=== PATIENT | male | born 1940 | race Caucasian/White ===

== ENCOUNTER 2016-08-27 14:57 | Emergency (ER) | payer OTHER ==
[~2016-08-27] VITALS: Ht 162.6 cm; Wt 56.7 kg
[~2016-08-27 14:57] MED LIST: AMOXICILLIN500 MG PO; POLYTRIM O200 GTT/BO OPH
[2016-08-27] MEDS ORDERED: VALSARTAN160 M1 PO (16:48)
[2016-08-27] MEDS ORDERED: POLYTRIM EYE DR10 ML OPH (16:49)
--- NOTE | 2016-08-27 16:49 | ED EYE COMPLAINT ---
History of Present Illness General Chief Complaint: Eye Problems Stated Complaint: PAIN IN R EYE Source: patient Exam Limitations: no limitations Vital Signs & Intake/Output Vital Signs & Intake/Output Vital Signs Date Time Temp Pulse Resp B/P Pulse O2 O2 Flow FiO2 Ox Delivery Rate 08/27 1652 60 16 160/90 08/27 1647 Room Air 08/27 1506 97.0 74 20 143/78 Room Air Allergies Coded Allergies: NO KNOWN ALLERGIES (08/27/16) Reconcile Medications Polytrim (Polytrim Eye Drops) 10,000 UNIT-1 MG/ML DROPS 1 GTT OPH Q6 CORNEAL ABRASION R EYE FOR 1 WEEK Valsartan 160 MG TABLET 1 TAB PO DAILY HEART (Reported) Triage Note: TRIAGE: PT TO ER C/C FB VS SCRATCH TO R EYE 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 IRRIGATED IT WITH WATER WITH NO RELIEF. DENIES VISION CHANGES. Triage Nurses Notes Reviewed? yes HPI: Patient was using an electric router on a piece of wood earlier today, not wearing safety goggles, felt would go in his eye, right eye. He has had foreign body sensation since. He tried to wash out his eye but has continued foreign body sensation in his concern he may have a foreign body or scratch in the eye. This is happened previously with a piece of metal and he had had the metal removed because of a rust ring. He denies any visual changes, he has mild tearing, no photophobia. His symptoms are mild. (TRACEY KRISHNA) Past History Travel History Traveled to [place] past 21 day No Medical History Any Pertinent Medical History? none Neurological: NONE EENT: NONE Cardiovascular: NONE Respiratory: NONE Gastrointestinal: NONE Hepatic: NONE Renal: NONE Musculoskeletal: NONE Psychiatric: NONE Endocrine: NONE Blood Disorders: NONE Cancer(s): NONE CHART CLERK/Reproductive: NONE History of CDIFF: No Tetanus Vaccine: 01/05/14 Surgical History Surgical History: non-contributory Psychosocial History What is your primary language Kittitian Tobacco Use: Current Daily Use Daily Tobacco Use Amount/Type: Cigar or Pipe use daily ETOH Use: occasional use Illicit Drug Use: denies illicit drug use Family History Hx Contributory? No (TRACEY KRISHNA) Review of Systems Review of Systems Constitutional: Reports: see HPI. Eyes: Reports: see HPI. Ear: Reports: no symptoms. Nose: Reports: no symptoms. Mouth: Reports: no symptoms. Throat: Reports: no symptoms. Respiratory: Reports: no symptoms. Cardiovascular: Reports: no symptoms. GI: Reports: no symptoms. Genitourinary: Reports: no symptoms. Musculoskeletal: Reports: no symptoms. Skin: Reports: no symptoms. Neurological/Psychological: Reports: no symptoms. Hematologic/Endocrine: Reports: no symptoms. Immunologic/Allergic: Reports: no symptoms. All Other Systems: Reviewed and Negative (TRACEY KRISHNA) Physical Exam General Appearance: well developed/nourished General Inspection: normal inspection General Inspection: normal inspection Eyelid: normal inspection, everted for exam Conjunctiva/Sclera: normal inspection Cornea: examined w/fluorescein, see diagram, fluorescein dye uptake EOM: intact Pupil: normal accommodation, normal pupil, PERRL Anterior Chamber: normal inspection Eye Right 1) Multiple very superficial linear corneal abrasions seen with fluorescein dye uptake. No foreign body Physical Exam Comments: Well-developed well-nourished no apparent distress. HEENT: Atraumatic, extraocular motion intact Visual acuity is normal. Right superior lid fever did and he contacted . care was used to swipe the superior eyelid to make sure there is no foreign body there, the eye was then irrigated with normal saline. Patient tolerated well without complications. Neck: Supple, no lymphadenopathy Back: Nontender Respiratory: No respiratory distress Extremities: No edema, full range of motion Neuro: Alert and oriented x3 Psych: Mood affect normal, normal memory normal judgment. Skin: Warm and dry, no rash on exposed skin (TRACEY KRISHNA) Progress Differential Diagnosis: corneal abrasion, corneal foreign body, conjunctivitis, detached retina, glaucoma, globe rupture, retinal art./v. occlusion Plan of Care: Recommend Polytrim for superficial corneal abrasion. 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 I have also reviewed all the pertinent lab results and diagnostic results. I agree with the findings and the plan of care as documented in the PA's/ASSOCIATE CIVIL ENGINEER's documentation. [X] I have reviewed the ED Record and agree with the PA's/ASSOCIATE CIVIL ENGINEER's documentation. [] Additions or exceptions (if any) to the PAs/ASSOCIATE CIVIL ENGINEER's note and plan are summarized below: [] (ANABELLA MCFADDEN,PURVI Cai)
[2016-08-27 16:52] VITALS: BP 160/90
== END 2016-08-27 16:58 ==
LOC: ERH 14:57
DX: S05.01XA Injury of conjunctiva and corneal abrasion without foreign body, right eye, initial encounter (principal); W22.8XXA Striking against or struck by other objects, initial encounter